=== PATIENT | male | born 1955 | race Caucasian/White ===

== ENCOUNTER 2024-05-16 16:58 | Emergency (ER) | payer OTHER | END 2024-05-16 18:56 | disposition home or self-care (01) | LOC: JP.ED 16:58 | DX: H10.9 Unspecified conjunctivitis (principal); E78.00 Pure hypercholesterolemia, unspecified; Z88.1 Allergy status to other antibiotic agents; Z88.5 Allergy status to narcotic agent; Z88.8 Allergy status to other drugs, medicaments and biological substances; Z79.899 Other long term (current) drug therapy | CPT/HCPCS: 99283 ==